=== PATIENT | male | born 1925 | race Caucasian/White ===

== ENCOUNTER 2016-07-24 17:30 | Emergency (ER) | payer OTHER ==
--- NOTE | ~2016-07-24 | CT71 ---
[facility] A Service of [facility] & [facility] RADIOLOGY TEXT RESULTS PATIENT: ABIDA PERDOMO LOCATION: [facility] : [birth year] UNIT #: [id number] AGE: [address]: Ian Carr MD SEX: M ORDER DR: [id number] [facility] [address] [place], [place] [address] [id number] E MR#: [id number] Acc #: [id number] NAME: ABIDA PERDOMO : 1925 SEX: M STUDY DATE/TIME: 07/24/2016 17:06 UNIT: [facility] ROOM: STUDY DESCRIPTION: CT Head Wo Contrast Attending Physician: Ian Carr M.D. Ordering Physician: Ed Jamar Torres M.D. Primary Care Physician: Justin Roland M.D. MEDICAL IMAGING REPORT This report is preliminary unless electronic signature is present EXAM CT head, without contrast, 07/24/2016. HISTORY Weakness and fall today. Confusion. Head and neck pain. FINDINGS CT head performed skull base through vertex without IV contrast. No prior CTs of head for comparison. Multiple images degraded by streak artifact. The brain stem is unremarkable. Cerebellum and cerebral hemispheres show overall preservation of fowler matter-white matter differentiation, without evidence of intracranial hemorrhage or clear indication of acute cortical ischemia. Subtle areas of hemorrhage or acute ischemia could be obscured by the streak artifact. Extensive periventricular and deep white matter tract hypodensities likely reflecting sequelae of chronic microvascular ischemia. Areas of encephalomalacic change along the posteromedial temporal lobes bilaterally probably reflecting remote vascular insult. The midline structures are nondisplaced. There is no clearly acute basal ganglia abnormality. Ventricles, cisterns, and sulci show moderate to marked generalized enlargement, consistent with generalized atrophy. Prominent cavernous carotid arterial calcifications. No intra- or extraaxial mass effect or abnormal intracranial fluid collection. Opacification of majority of left mastoid air cells. Correlate with any clinical signs or symptoms of mastoiditis. No discrete air-fluid levels are seen. The remaining paranasal sinuses and mastoid air cells are clear. No fracture. No traumatic scalp abnormality suggested. IMPRESSION 1. Study is degraded by streak artifact. No clearly acute abnormality is seen in the brain. If the patient has ongoing neurologic symptoms, [facility]. [facility] A Service of [facility] & [facility] RADIOLOGY TEXT RESULTS PATIENT: ABIDA PERDOMO LOCATION: [facility] : [birth year] UNIT #: [id number] AGE: [address]: Ian Carr MD SEX: M ORDER DR: consider follow-up imaging. 2. Moderate to marked generalized atrophy. 3. Extensive periventricular and deep white matter tract probable sequelae of chronic microvascular ischemia. 4. No intracranial mass effect or abnormal fluid collection. 5. Areas of more localized encephalomalacic change along the posteromedial inferior temporal lobes bilaterally, probably reflecting sequelae of remote vascular insult. 6. Opacification of multiple left mastoid air cells. Findings suggest left mastoiditis. Correlate clinically. No underlying bony destructive process is seen. Dictated by... Shane Gann M.D. THIS IS AN ELECTRONICALLY VERIFIED REPORT Shane Gann M.D. at 08/03/2016 2:13 PM KENZIE/eh TD: 07/25/2016 12:27 JOB #: [id number] MEDICAL IMAGING REPORT COPY
--- NOTE | ~2016-07-24 | CT52 ---
[facility] A Service of [facility] RADIOLOGY TEXT RESULTS PATIENT: ERNESTO PERDOMO LOCATION: [facility] : [birth year] UNIT #: [id number] AGE: [address]: Ian Carr MD SEX: M ORDER DR: [id number] [facility] [address] [place], [place] [address] [id number] E MR#: [id number] #: [id number] NAME: ERNESTO PERDOMO : 1925 SEX: M STUDY DATE/TIME: 07/24/2016 17:14 UNIT: [facility] ROOM: STUDY DESCRIPTION: CT Cervical Spine Wo Cont Attending Physician: Ian Carr M.D. Ordering Physician: Brock Torres M.D. Primary Care Physician: Justin Roland M.D. MEDICAL IMAGING REPORT This report is preliminary unless electronic signature is present EXAM Cervical spine CT, no contrast. DATE OF STUDY 07/24/[address] cervical spine CT without contrast with multiplanar reformats. This CT exam was performed with one or more of the following radiation dose reduction techniques: automatic exposure control, adjustment of mA and/or kV according to patient size, and iterative reconstruction. COMPARISON None. CLINICAL HISTORY Weakness and confusion, head and neck pain after fall today. FINDINGS There is no convincing evidence of any acute fracture. 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 There is facet arthropathy, but no acute abnormality is seen. The adjacent soft tissues are also unremarkable. 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 Dictated by... Ernesto Pastor M.D. THIS IS AN ELECTRONICALLY VERIFIED REPORT Ernesto Pastor M.D. at 07/27/2016 5:08 PM [facility] A Service of [facility] RADIOLOGY TEXT RESULTS PATIENT: ERNESTO PERDOMO LOCATION: [facility] : [birth year] UNIT #: [id number] AGE: [address]: Ian Carr MD SEX: M ORDER DR: HERNAN/antonia TD: 07/25/2016 12:43 JOB #: [id number] MEDICAL IMAGING REPORT COPY
--- NOTE | ~2016-07-24 | EKG ---
PATIENT: ABIDA PERDOMO UNIT #: [id number] Ventricular Rate: 116 BPM Atrial Rate: 214 BPM QRS Duration: 122 ms Q-T Interval: 380 ms QTC Calculation(Bezet): 528 ms Calculated R [place]: -63 degrees Calculated T [place]: 29 degrees Diagnosis Line: Wide QRS rhythm Diagnosis Line: Right bundle branch block Diagnosis Line: Left anterior fascicular block Diagnosis Line: Bifascicular block Diagnosis Line: Abnormal ECG Diagnosis Line: No previous ECGs available Diagnosis Line: Confirmed by GERMÁN BROWN MD ([id number]) on Diagnosis Line: 07/27/2016 12:01:32 AM INTERPRETING MD: STEPHANIE POWERS
--- NOTE | ~2016-07-24 | CR72 ---
[facility] A Service of [facility] & [facility] RADIOLOGY TEXT RESULTS PATIENT: ABIDA PERDOMO LOCATION: [facility] : [birth year] UNIT #: [id number] AGE: [address]: Ian Carr MD SEX: M ORDER DR: [id number] [facility] [address] [place], [place] [address] [id number] E MR#: [id number] Acc #: [id number] NAME: ABIDA PERDOMO : 1925 SEX: M STUDY DATE/TIME: 07/24/2016 16:49 UNIT: [facility] ROOM: STUDY DESCRIPTION: CR Chest Single View Portable Attending Physician: Ian Carr M.D. Ordering Physician: Ed Doctor [id number] [facility] Primary Care Physician: Justin Roland M.D. MEDICAL IMAGING REPORT This report is preliminary unless electronic signature is present EXAM Portable chest. HISTORY Cough starting today. FINDINGS A portable view of the chest obtained. There are low lung volumes. The heart size and vascularity are normal. The lungs are clear. There is degenerative change in the right shoulder. IMPRESSION Low lung volumes. No active disease. Dictated by... Prakash Fitzgerald M.D. THIS IS AN ELECTRONICALLY VERIFIED REPORT Prakash Fitzgerald M.D. at 07/25/2016 12:24 PM [place] TD: 07/25/2016 11:00 JOB #: [id number] MEDICAL IMAGING REPORT COPY
[~2016-07-24 17:30] MED LIST: AMARYL1 MG PO; ASPIRIN; BUMEX2 MG PO; CERTAGEN PO; FOSINOPRIL SODI20 MG PO; GREEN TEA; KEFLEX PO; LORTAB 7.5-5001 TAB PO; MICARDIS PO; NAPROXEN; PANTOPRAZOLE SO40 MG PO; PLAVIX PO; WATER PILL; ZYLOPRIM; [UNRECOGNIZED DRUG - OTHER]
[2016-07-24 17:56] LABS: BASOPHIL# 0.1 X10e3 (0-0.3); BASOPHIL% 0.5 % (0-2.5); EOSINOPHIL# 0.2 X10e3 (0-0.7); EOSINOPHIL% 1.9 % (0.0-7.0); HEMATOCRIT 46.5 % (38.0-50.0); HEMOGLOBIN 15.3 gm/dL (13.0-16.0); LYMPHOCYTE# 2.1 X10e3 (1.0-3.5); LYMPHOCYTE% 16.1 % (17.0-45.0); MEAN CELL VOLUME 93.7 FL (83-96); MEAN CORPUSCULAR HEMOGLOBIN 30.8 PG (28-34); MEAN CORPUSCULAR HGB CONC 32.8 g/dL (30-36); MEAN PLATELET VOLUME 10.1 FL (6.5-11.5); MONOCYTE% 7.9 % (3.0-12.0); NEUTROPHIL# 9.5 X10e3 (1.5-7.1); NEUTROPHIL% 73.6 % (40-75); PLATELET COUNT 209 X10e3 (140-420); RED BLOOD COUNT 4.96 X10e (3.90-5.60); RED CELL DISTRIBUTION WIDTH 13.2 % (11.0-15.5); WHITE BLOOD COUNT 12.9 X10e3 (4.0-10.5)
[2016-07-24 18:00] LABS: DIFF IND NO
[2016-07-24 18:12] LABS: INR 1.1; PARTIAL THROMBOPLASTIN TIME 26.6 SECONDS (23.5-31.3); PROTHROMBIN TIME (PATIENT) 11.1 SECONDS (9.6-11.5)
[2016-07-24 18:23] LABS: ALBUMIN SERUM 3.7 g/dL (3.5-5.0); ALKALINE PHOSPHATASE 91 U/L (32-92); ALT (SGPT) 31 U/L (10-40); AST (SGOT) 29 U/L (10-42); BILIRUBIN, DIRECT 0.2 mg/dL (0.0-0.2); BILIRUBIN,INDIRECT 0.6 mg/dL (0.0-0.9); BILIRUBIN,TOTAL 0.8 mg/dL (0.2-2.0); BLOOD UREA NITROGEN 30 mg/dL (9-23); CALCIUM SERUM 9.5 mg/dL (8.4-10.2); CARBON DIOXIDE 28 mmol/L (22-31); CHLORIDE 103 mmol/L (100-111); CREATININE SERUM 1.2 mg/dL (0.6-1.4); GLOM FILT RATE Estimated ABOVE60 mL/min (>60); GLUCOSE FASTING 125 mg/dL (70-110); POTASSIUM 4.1 mmol/L (3.5-5.1); PROTEIN TOTAL SERUM 7.4 g/dL (6.0-8.3); SODIUM 142 mmol/L (135-145)
[2016-07-24 18:46] LABS: URINE SOURCE CLEAN CATCH
[2016-07-24 18:52] LABS: URINE APPEARANCE CLEAR; URINE BILIRUBIN NEG (NEG); URINE BLOOD NEG (NEG); URINE COLOR YELLOW; URINE GLUCOSE NEG (NEG); URINE KETONE NEG (NEG); URINE LEUKOCYTE ESTERASE 2+ (NEG); URINE NITRATE NEG (NEG); URINE PROTEIN NEG (NEG); URINE UROBILINOGEN 0.2 MG/DL (NEG)
[2016-07-24 18:54] LABS: CULTURE INDICATED? YES; U HYALINE CASTS AUWI 0-2 /[LPF]; URBCS1 AUWI 0-2 /[HPF] (0-2); URINE BACTERIA AUWI NEG (NEGATIVE); URINE SQUAMOUS EPITHELIAL CELL NONE SEEN /[HPF]
[2016-07-24 18:55] LABS: POC - CKMB 2.6 ng/mL (0.0-7.9); POC - TROPONIN <0.05 ng/mL (<=0.05)
== END 2016-07-24 19:30 | disposition home or self-care (01) ==
LOC: CED 17:30
PROVIDERS: Emergency Medicine
DX: S09.90XA Unspecified injury of head, initial encounter (principal); S16.1XXA Strain of muscle, fascia and tendon at neck level, initial encounter; R53.1 Weakness; I12.9 Hypertensive chronic kidney disease with stage 1 through stage 4 chronic kidney disease, or unspecified chronic kidney disease; N18.9 Chronic kidney disease, unspecified; Z88.8 Allergy status to other drugs, medicaments and biological substances; W22.8XXA Striking against or struck by other objects, initial encounter; Y92.9 Unspecified place or not applicable
CPT/HCPCS: 36415; 70450; 71010; 72125; 80048; 80076; 81003; 82553; 84484; 85025; 85610; 85730; 87086; 93005; 99284